=== PATIENT | female | born 1955 | race Caucasian/White ===

== ENCOUNTER 2023-03-08 07:00 | Outpatient (CLI) | payer MEDICARE ==
--- NOTE | 2023-03-08 16:23 | XRAY Report ---
PROCEDURE: Lumbar Spine 2-3V INDICATIONS: OSTEOARTHRITIS, LUMBAR SPINE TECHNIQUE: 3 views of the lumbar spine were acquired. COMPARISON: None. FINDINGS: Bones: 5 [id number]-plyrpea vertebrae are present. There is grade 1 anterolisthesis of L4 on L5. Multi level lumbar spondylitic changes with degenerative endplate changes, disc space loss, and facet arthr opathy. Findings are most pronounced at L4-5, L5-S1, and L1-2. No acute vertebral body compression f ractures. No suspicious bony lesions. Chronic appearing anterior compression deformity at L1. Soft tissues: Overlying bowel gas pattern is normal. No suspicious soft tissue calcifications. IMPRESSION: Lumbar spine without acute osseous abnormalities. Moderate multilevel lumbar spondylosis. Reviewed by: Alexandro Marx MD on 03/08/2023 4:22 PM PST Approved by: Alexandro Marx MD on 03/08/2023 4:22 PM [facility] Station ID: [id number]
== END 2023-03-08 23:59 | disposition home or self-care (01) ==
LOC: DI.S 07:00
PROVIDERS: ATTEND Emergency Medicine
DX: M47.816 Spondylosis without myelopathy or radiculopathy, lumbar region (principal); M47.817 Spondylosis without myelopathy or radiculopathy, lumbosacral region

== ENCOUNTER 2023-05-04 09:48 | Outpatient (CLI) | payer MEDICARE ==
--- NOTE | 2023-05-05 09:56 | Mammography Report ---
BILATERAL DIGITAL SCREENING MAMMOGRAM 3D/2D WITH EXAGGERATED CC: 05/04/2023 CLINICAL: Routine screening. Comparison is made to exams dated: 06/05/2022 mammogram and 11/07/2019 mammogram - [facility]. There are scattered areas of fibroglandular density in both breasts (category b / 25%-50% glandular t issue). There are benign calcifications in the right breast. No significant masses, calcifications, or other findings are seen in either breast. There has been no significant interval change. IMPRESSION: BENIGN There is no mammographic evidence of malignancy. A 1 year screening mammogram is recommended. Based on the Tyrer Cuzick model (a risk assessment model) the patient's lifetime risk is 8.7% and her 10 year risk is 4.4%. According to the ACR, ACS, and NCCN guidelines, an annual breast MRI exam tanya g with mammogram is recommended if the patient's lifetime risk is 20% or greater. This exam was interpreted at Station ID: [id number]. NOTE: For mammograms, a report in lay terms will be sent to the patient. Approximately 15% of breast malignancies will not be visualized mammographically. In the management of a palpable breast mass, a negative mammogram must not discourage biopsy of a clinically suspicious lesion. Electronically Signed By: Laureano bautista/orly:05/04/2023 13:29:19 letter sent: No_Letter ACR BI-RADS Category 2: Benign Finding(s) 3342F PARENCHYMAL PATTERN: (A) - The breast(s) demonstrate(s) scattered fibroglandular densities. BI-RADS CATEGORY: (2) - 2 RECOMMENDATION: (ANNUAL) - Recommend routine annual screening mammography. [id number] 1 year screening LATERALITY: (B)
== END 2023-05-04 09:49 | disposition home or self-care (01) ==
LOC: DI.S 09:48
PROVIDERS: ATTEND Physician Assistant Medical
DX: Z12.31 Encounter for screening mammogram for malignant neoplasm of breast (principal); R92.323 Mammographic fibroglandular density, bilateral breasts